=== PATIENT | female | born 1990 | race Hispanic/Latino ===

== ENCOUNTER 2024-11-18 07:25 | Emergency (ER) | payer SELFPAY ==
[~2024-11-18] VITALS: Ht 157.5 cm; Wt 84.5 kg
[2024-11-18] MEDS ORDERED: PROGESTERONE1000 GM (07:54)
[2024-11-18] MEDS ORDERED: ONDANSETRON ODT4 MG PO (08:48)
[2024-11-18] MEDS: MAGNESIUM/ALUMINUM/SIMETHICONE 30 ML UDC PO ONE (09:06)
[2024-11-18] MEDS: SODIUM CHLORIDE 0.9% 1000ML 1,000 ML IV STA (09:06)
[2024-11-18] MEDS: ONDANSETRON HCL INJ 2MG/ML 2ML 2 MG/ML VIAL IV STA (09:06)
[2024-11-18] MEDS: FAMOTIDINE 20 MG/2 ML VIAL IV STA (09:06)
[2024-11-18] MEDS: KETOROLAC TROMETHAMINE 30 MG/ML VIAL IV STA (09:07)
[2024-11-18 10:01] VITALS: PULSE 59; RESP 16; TEMP 97.6; O2SAT 100
== END 2024-11-18 10:01 | disposition home or self-care (01) ==
LOC: FSED 07:36
DX: R11.2 Nausea with vomiting, unspecified (principal); A05.9 Bacterial foodborne intoxication, unspecified; R10.13 Epigastric pain
CPT/HCPCS: 80053; 81003; 81025; 85025; 99284; J1885; J2405; J7030